=== PATIENT | male | born 1955 | race African-American/Black ===

== ENCOUNTER 2022-06-23 08:20 | Emergency (ER) | payer BC, OTHER ==
[~2022-06-23] VITALS: Ht 185.4 cm; Wt 99.8 kg
[2022-06-23 08:20] VITALS: BP_SYST 126
[2022-06-23] MEDS ORDERED: KETOROLAC TROMETHAMINE 30 MG VIAL IVP ONE (09:00)
[2022-06-23] MEDS ORDERED: NACL 0.9% 1,000 ML IV ONE (09:00)
[2022-06-23] MEDS ORDERED: AMPICILLIN SODIUM/SULBACTAM NA 3 GM in NS 100 ML IV ONE (09:30)
[2022-06-23 09:34] LABS: ANION GAP 9 (5-15); CALCIUM 9.5 mg/dL (8.4-11.0); CHLORIDE 103 mmol/L (98-107); CREATININE 1.03 mg/dL (0.55-1.30); GLUCOSE 143 mg/dL (70-99); POTASSIUM 3.6 mmol/L (3.5-5.1); UREA NITROGEN, BLOOD 11 mg/dL (8-21)
[2022-06-23 09:38] LABS: PROTHROMBIN TIME 10.4 SECS (9.5-12.5)
[2022-06-23 09:39] LABS: GFR AFRICAN AMERICAN 92 mL/min (>90)
[2022-06-23 09:41] LABS: ALANINE AMINOTRANSFERASE 21 U/L (12-78); ALBUMIN 3.8 g/dL (3.4-4.8); ASPARTATE AMINOTRANSFERASE 19 U/L (10-37); TOTAL BILIRUBIN 1.3 mg/dL (0.0-1.0)
[2022-06-23 09:44] LABS: BASOPHILS # (AUTO) 0.1 K/uL (0.0-0.2); BASOPHILS % (AUTO) 0.8 % (0.0-2.0); EOSINOPHILS # (AUTO) 0.2 K/uL (0.0-0.4); EOSINOPHILS % (AUTO) 2.3 % (0.0-4.0); HEMATOCRIT 46.4 % (36-54); HEMOGLOBIN 15.6 g/dL (14.0-18.0); LYMPHOCYTES % (AUTO) 12.9 % (20.5-51.5); MEAN CORPUSCULAR HEMOGLOBIN 27 pg (27-31); MEAN CORPUSCULAR HGB CONC 34 % (32-36); MEAN CORPUSCULAR VOLUME 82 fL (79.0-98.0); MONOCYTES # (AUTO) 0.7 K/uL (0.0-1.0); MONOCYTES % (AUTO) 8.9 % (1.7-9.3); NEUTROPHILS # (AUTO) 6.1 K/uL (1.8-7.7); NEUTROPHILS % (AUTO) 75.1 % (40.0-70.0); PLATELET COUNT (AUTO) 212 K/uL (130-430); RED BLOOD CELL COUNT(AUTO) 5.68 MIL/uL (4.2-6.2); RED CELL DISTRIBUTION WIDTH 17.3 % (9.0-15.0); WHITE BLOOD COUNT (AUTO) 8.1 K/uL (4.8-10.8)
[2022-06-23] MEDS ORDERED: DEXAMETHASONE SOD PHOSPHATE 10 MG/ML VIAL IVP ONE (09:45)
[2022-06-23] MEDS ORDERED: AMPICILLIN SODIUM/SULBACTAM NA 3 GM VIAL ONE (10:05)
[2022-06-23] MEDS ORDERED: HYDR-3921 PO (11:40)
[2022-06-23] MEDS ORDERED: AUG875 PO (11:53)
[2022-06-23 12:31] LABS: ERYTHROCYTE SEDIMENTATION RATE 18 MM/HR (0-15)
[2022-06-23 12:49] VITALS: BP_SYST 127
== END 2022-06-23 12:49 | disposition home or self-care (01) ==
LOC: SED 08:20
DX: K04.7 Periapical abscess without sinus (principal); A41.9 Sepsis, unspecified organism; R22.0 Localized swelling, mass and lump, head; Z79.899 Other long term (current) drug therapy
CPT/HCPCS: 99285; 96365; 70487; 96375; 96361; 80053; 82962; 85025; 85610; 85651; 85730; 87040; 84484; 36415; 93005; 76376; 83605; J0295; J1100; J1885; Q9967; J7030